=== PATIENT | male | born 1950 | race Caucasian/White ===

== ENCOUNTER 2020-03-01 16:17 | Emergency (ER) | payer MEDICARE ==
[2020-03-01] MEDS ORDERED: Ibuprofen 200 MG TAB ONE (17:06)
--- NOTE | 2020-03-01 20:55 | RAD ---
RIGHT HIP TWO VIEWS: 03/01/20 No fracture or dislocation was seen. The joint space is normal in width. The adjacent pubic ring esmer ears intact. There was perhaps a minimal amount of sclerosis in the femoral neck, but given a three d ay old injury, I doubt that this is a sign of a subtle fracture. The right SI joint appears normal. IMPRESSION: No acute findings. POS: HOME
== END 2020-03-01 17:33 | disposition home or self-care (01) ==
LOC: BURERS 16:17
DX: S70.01XA Contusion of right hip, initial encounter (principal); I10 Essential (primary) hypertension; I25.10 Atherosclerotic heart disease of native coronary artery without angina pectoris; Z95.1 Presence of aortocoronary bypass graft; F17.210 Nicotine dependence, cigarettes, uncomplicated; W17.89XA Other fall from one level to another, initial encounter
CPT/HCPCS: 99406

== ENCOUNTER 2021-02-01 08:58 | Emergency (ER) | payer MEDICARE | END 2021-02-01 10:25 | disposition home or self-care (01) | LOC: BURERS 08:58 | DX: G62.9 Polyneuropathy, unspecified (principal); I10 Essential (primary) hypertension; F17.210 Nicotine dependence, cigarettes, uncomplicated; I25.10 Atherosclerotic heart disease of native coronary artery without angina pectoris; Z86.73 Personal history of transient ischemic attack (TIA), and cerebral infarction without residual deficits | CPT/HCPCS: 99283 ==

== ENCOUNTER 2021-08-15 15:18 | Emergency (ER) | payer MEDICARE ==
[2021-08-15 16:10] LABS: #Basophils 0.1 thou/uL (0.0-0.2); #Eosinphils 0.3 thou/uL (0.0-0.7); #Lymphocytes 1.1 thou/uL (1.20-3.40); #Monocytes 0.7 thou/uL (0.11-0.59); #Neutrophils 5.7 thou/uL (1.40-6.50); %Basophils 0.7 % (0.0-1.0); %Eosinophils 3.3 % (0.0-10.0); %Lymphocytes 13.6 % (21.0-51.0); %Monocytes 9.4 % (0.0-10.0); %Neutrophils 72.9 % (42.0-75.0); Hemoglobin 15.2 g/dL (14.0-18.0); Mean Corpuscular HGB CONC 32.8 g/dL (32.0-36.0); Mean Corpuscular Volume 88.4 fL (78.0-98.0); Mean Platelet Volume 8.2 fL (7.4-10.4); Platelet Count 186 thou/uL (130-400); RBC Distribution Width 13.8 % (11.5-14.5); Red Blood Cell (RBC) Count 5.24 mill/uL (4.70-6.10); White Blood Cell (WBC) Count 7.8 thou/uL (4.8-10.8)
[2021-08-15 16:26] LABS: ALT (SGPT) 15 U/L (8-55); AST (SGOT) 15 U/L (5-34); Albumin 3.7 g/dL (3.4-4.8); Alkaline Phosphatase 74 U/L (40-110); Anion Gap 14 mmol/L (10-20); BUN (Urea Nitrogen) 30 mg/dL (8.4-25.7); Bilirubin, Total 0.7 mg/dL (0.2-1.2); Calc. Creatinine Clearance 0 mL/min (70-130); Calcium 8.8 mg/dL (7.8-10.44); Carbon Dioxide 22 mmol/L (23-31); Chloride 110 mmol/L (98-107); Globulin 2.9 g/dL (2.4-3.5); Glucose 94 mg/dL (83-110); Potassium 4.1 mmol/L (3.5-5.1); Protein, Total 6.6 g/dL (5.8-8.1); Sodium 142 mmol/L (136-145)
[2021-08-15] MEDS ORDERED: cloNIDine 0.1 MG TAB ONE (16:59)
[2021-08-15 17:10] LABS: Bilirubin Negative (Negative); Blood, Urine Negative (Negative); Clarity Clear (Clear); Glucose, Urine (Dipstick) 100 mg/dL (Negative); Ketone, Urine Negative (Negative); Leukocyte Negative (Negative); Nitrite Negative (Negative); Protein, Urine (Dipstick) Negative (Neg-Trace); Urobilinogen 0.2 mg/dL (Less than 2); pH, Urine 5.5 (5.0-9.0)
== END 2021-08-15 19:21 | disposition home or self-care (01) ==
LOC: BURERS 15:18
DX: I10 Essential (primary) hypertension (principal); I25.10 Atherosclerotic heart disease of native coronary artery without angina pectoris; F17.210 Nicotine dependence, cigarettes, uncomplicated; Z59.00 Homelessness unspecified; Z79.82 Long term (current) use of aspirin; Z79.899 Other long term (current) drug therapy; Z86.73 Personal history of transient ischemic attack (TIA), and cerebral infarction without residual deficits
CPT/HCPCS: 36415; 71045; 80053; 81003; 83880; 84484; 85025; 93005

== ENCOUNTER 2021-10-31 09:10 | Emergency (ER) | payer MEDICARE ==
[2021-10-31] MEDS ORDERED: Ibuprofen 200 MG TAB ONE (09:52)
== END 2021-10-31 10:43 | disposition home or self-care (01) ==
LOC: BURERS 09:10
DX: M72.2 Plantar fascial fibromatosis (principal); I10 Essential (primary) hypertension; F17.210 Nicotine dependence, cigarettes, uncomplicated; I25.10 Atherosclerotic heart disease of native coronary artery without angina pectoris; Z79.899 Other long term (current) drug therapy; Z79.82 Long term (current) use of aspirin; Z71.6 Tobacco abuse counseling

== ENCOUNTER 2021-11-02 11:58 | Emergency (ER) | payer MEDICARE ==
[2021-11-02] MEDS ORDERED: Iopamidol 370 76% 100 ML VIAL FS ONE (11:59)
[2021-11-02 12:17] LABS: #Monocytes 0.4 thou/uL (0.11-0.59); #Neutrophils 9.8 thou/uL (1.40-6.50); %Basophils 0.4 % (0.0-1.0); %Eosinophils 0.1 % (0.0-10.0); %Lymphocytes 9.1 % (21.0-51.0); %Monocytes 3.9 % (0.0-10.0); %Neutrophils 86.6 % (42.0-75.0); Mean Corpuscular HGB CONC 33.4 g/dL (32.0-36.0); Mean Corpuscular Volume 86.6 fL (78.0-98.0); Mean Platelet Volume 8.1 fL (7.4-10.4); Platelet Count 283 thou/uL (130-400); RBC Distribution Width 13.6 % (11.5-14.5); Red Blood Cell (RBC) Count 5.86 mill/uL (4.70-6.10); White Blood Cell (WBC) Count 11.3 thou/uL (4.8-10.8)
[2021-11-02 12:23] LABS: Prothrombin Time 13.5 sec (12.0-14.7)
[2021-11-02 12:24] LABS: PTT 34.6 sec (22.9-36.1)
[2021-11-02] MEDS ORDERED: Aspirin 300 MG Suppository ONE ×2 (12:24→12:37)
[2021-11-02 12:31] LABS: ALT (SGPT) 13 U/L (8-55); AST (SGOT) 15 U/L (5-34); Acetaminophen Less than 10.0 mcg/mL (10.0-30.0); Albumin 4.3 g/dL (3.4-4.8); Alcohol Less than 10 mg/dL (Less than 10); Alkaline Phosphatase 85 U/L (40-110); Anion Gap 18 mmol/L (10-20); BUN (Urea Nitrogen) 28 mg/dL (8.4-25.7); Bilirubin, Total 0.8 mg/dL (0.2-1.2); Calc. Creatinine Clearance 0 mL/min (70-130); Calcium 9.6 mg/dL (7.8-10.44); Carbon Dioxide 23 mmol/L (23-31); Chloride 107 mmol/L (98-107); Estimated GFR 47; Globulin 3.3 g/dL (2.4-3.5); Glucose 135 mg/dL (83-110); Potassium 4.6 mmol/L (3.5-5.1); Protein, Total 7.6 g/dL (5.8-8.1); Salicylate Less than 8.0 mg/dL (15.0-30.0); Sodium 143 mmol/L (136-145)
[2021-11-02] MEDS ORDERED: Aspirin Chewable 81 MG TAB ONE (12:34)
[2021-11-02] MEDS ORDERED: Phenylephrine 10 MG/ML VIAL ONE (13:25)
[2021-11-02] MEDS ORDERED: fentaNYL Citrate/PF 100 MCG/2 ML SYRINGE ONE (13:25)
[2021-11-02] MEDS ORDERED: Heparin 10,000 UNITS/ 10 ML VIAL ONE (13:28)
[2021-11-02] MEDS ORDERED: Lidocaine 1% (PF) 30 ML VIAL ONE (13:28)
== END 2021-11-02 13:30 | disposition short-term general hospital (02) ==
LOC: BURERS 11:58
DX: I63.511 Cerebral infarction due to unspecified occlusion or stenosis of right middle cerebral artery (principal)
CPT/HCPCS: 0042T; 70450; 70496; 70498; 71045; 80053; 80307; 82962; 83880; 84484; 85025; 85610; 85730; 93005; 94760; 99285; 36416; J1644; J2001; J2370; Q9967

== ENCOUNTER 2021-11-10 13:55 | Inpatient (IN) | payer MEDICARE ==
[2021-11-10 15:03] VITALS: BMI 26.6
[2021-11-10] MEDS ORDERED: Acetaminophen 325 MG TAB PO PRN (22:11)
[2021-11-11] MEDS: Nicotine 14 MG PATCH TOP SCH (08:11)
[2021-11-11] MEDS: Hydrochlorothiazide 25 MG TAB PO SCH (08:12)
[2021-11-11] MEDS: Aspirin Chewable 81 MG TAB PO SCH (08:13)
[2021-11-11] MEDS: Carvedilol 6.25 MG TAB PO SCH ×2 (08:14→20:33)
[2021-11-11] MEDS: Losartan Potassium 50 MG TAB PO SCH (08:15)
[2021-11-11] MEDS: NIFEdipine XL 30 MG TAB PO SCH (20:33)
[2021-11-11] MEDS: Atorvastatin Calcium 40 MG TAB PO SCH (20:33)
[2021-11-12] MEDS: Nicotine 14 MG PATCH TOP SCH (08:45)
[2021-11-12] MEDS: Losartan Potassium 50 MG TAB PO SCH (08:45)
[2021-11-12] MEDS: Carvedilol 6.25 MG TAB PO SCH ×2 (08:46→20:23)
[2021-11-12] MEDS: Aspirin Chewable 81 MG TAB PO SCH (08:46)
[2021-11-12] MEDS: Hydrochlorothiazide 25 MG TAB PO SCH (08:47)
[2021-11-12] MEDS: NIFEdipine XL 30 MG TAB PO SCH (20:23)
[2021-11-12] MEDS: Atorvastatin Calcium 40 MG TAB PO SCH (20:23)
[2021-11-13] MEDS: Aspirin Chewable 81 MG TAB PO SCH (08:13)
[2021-11-13] MEDS: Nicotine 14 MG PATCH TOP SCH (08:13)
[2021-11-13] MEDS: Losartan Potassium 50 MG TAB PO SCH (08:15)
[2021-11-13] MEDS: Carvedilol 6.25 MG TAB PO SCH ×2 (08:16→20:38)
[2021-11-13] MEDS: Hydrochlorothiazide 25 MG TAB PO SCH (08:18)
[2021-11-13] MEDS: Clopidogrel Bisulfate 75 MG TAB PO SCH (08:33)
[2021-11-13] MEDS: Atorvastatin Calcium 40 MG TAB PO SCH (20:38)
[2021-11-13] MEDS: NIFEdipine XL 30 MG TAB PO SCH (20:38)
[2021-11-14] MEDS ORDERED: Acetaminophen 650 MG Suppository PR PRN (03:17)
[2021-11-14] MEDS ORDERED: Acetaminophen 325 MG TAB PO PRN (03:17)
[2021-11-14] MEDS ORDERED: Ondansetron ODT 4 MG TAB SL PRN (03:18)
[2021-11-14] MEDS ORDERED: HYDROcodone/Acetaminophen 5/325 mg Tablet PO PRN ×2 (03:18)
[2021-11-14] MEDS ORDERED: Calcium Carbonate 500 MG ChewTAB PO PRN (03:19)
[2021-11-14] MEDS ORDERED: Ondansetron PF 4 MG/2 ML Vial IVP PRN (03:19)
[2021-11-14] MEDS ORDERED: Senokot S 8.6-50 MG TAB PO PRN (03:21)
[2021-11-14] MEDS ORDERED: Bisacodyl 5 MG TAB PO PRN (03:21)
[2021-11-14] MEDS ORDERED: Bisacodyl 10 MG SUPP PR PRN (03:21)
[2021-11-14] MEDS ORDERED: Loperamide HCl 2 MG CAP PO PRN ×2 (03:22→03:23)
[2021-11-14] MEDS ORDERED: Zolpidem Tartrate 5 MG TAB PO PRN (03:23)
[2021-11-14] MEDS: Nicotine 14 MG PATCH TOP SCH (09:11)
[2021-11-14] MEDS: Carvedilol 6.25 MG TAB PO SCH ×2 (09:11→20:56)
[2021-11-14] MEDS: Aspirin Chewable 81 MG TAB PO SCH (09:12)
[2021-11-14] MEDS: Losartan Potassium 50 MG TAB PO SCH (09:12)
[2021-11-14] MEDS: Clopidogrel Bisulfate 75 MG TAB PO SCH (09:12)
[2021-11-14] MEDS: Hydrochlorothiazide 25 MG TAB PO SCH (09:12)
[2021-11-14] MEDS: NIFEdipine XL 30 MG TAB PO SCH (20:55)
[2021-11-14] MEDS: Atorvastatin Calcium 40 MG TAB PO SCH (20:56)
[2021-11-15] MEDS: Clopidogrel Bisulfate 75 MG TAB PO SCH (08:46)
[2021-11-15] MEDS: Aspirin Chewable 81 MG TAB PO SCH (08:46)
[2021-11-15] MEDS: Carvedilol 6.25 MG TAB PO SCH ×2 (08:46→20:52)
[2021-11-15] MEDS: Nicotine 14 MG PATCH TOP SCH (08:46)
[2021-11-15] MEDS: Hydrochlorothiazide 25 MG TAB PO SCH (08:46)
[2021-11-15] MEDS: Losartan Potassium 50 MG TAB PO SCH (08:47)
[2021-11-15] MEDS: Atorvastatin Calcium 40 MG TAB PO SCH (20:53)
[2021-11-15] MEDS: NIFEdipine XL 30 MG TAB PO SCH (20:53)
[2021-11-16] MEDS: Clopidogrel Bisulfate 75 MG TAB PO SCH (09:46)
[2021-11-16] MEDS: Hydrochlorothiazide 25 MG TAB PO SCH ×2 (09:46→09:47)
[2021-11-16] MEDS: Nicotine 14 MG PATCH TOP SCH (09:46)
[2021-11-16] MEDS: Carvedilol 6.25 MG TAB PO SCH ×2 (09:47→20:41)
[2021-11-16] MEDS: Losartan Potassium 50 MG TAB PO SCH (09:47)
[2021-11-16] MEDS: Aspirin Chewable 81 MG TAB PO SCH (09:49)
[2021-11-16] MEDS: NIFEdipine XL 30 MG TAB PO SCH (20:41)
[2021-11-16] MEDS: Atorvastatin Calcium 40 MG TAB PO SCH (20:41)
[2021-11-17] MEDS: Clopidogrel Bisulfate 75 MG TAB PO SCH (09:30)
[2021-11-17] MEDS: Carvedilol 6.25 MG TAB PO SCH ×2 (09:30→21:31)
[2021-11-17] MEDS: Losartan Potassium 50 MG TAB PO SCH (09:31)
[2021-11-17] MEDS: Aspirin Chewable 81 MG TAB PO SCH (09:31)
[2021-11-17] MEDS: Nicotine 14 MG PATCH TOP SCH (09:31)
[2021-11-17] MEDS: NIFEdipine XL 30 MG TAB PO SCH (21:30)
[2021-11-17] MEDS: Atorvastatin Calcium 40 MG TAB PO SCH (21:30)
[2021-11-18] MEDS: Aspirin Chewable 81 MG TAB PO SCH (09:57)
[2021-11-18] MEDS: Carvedilol 6.25 MG TAB PO SCH ×2 (09:57→21:48)
[2021-11-18] MEDS: Clopidogrel Bisulfate 75 MG TAB PO SCH (09:57)
[2021-11-18] MEDS: Hydrochlorothiazide 25 MG TAB PO SCH (09:58)
[2021-11-18] MEDS: Nicotine 14 MG PATCH TOP SCH (09:58)
[2021-11-18] MEDS: Losartan Potassium 50 MG TAB PO SCH (09:58)
[2021-11-18] MEDS: Atorvastatin Calcium 40 MG TAB PO SCH (21:48)
[2021-11-18] MEDS: NIFEdipine XL 30 MG TAB PO SCH (21:48)
[2021-11-19] MEDS: Losartan Potassium 50 MG TAB PO SCH (10:23)
[2021-11-19] MEDS: Clopidogrel Bisulfate 75 MG TAB PO SCH (10:23)
[2021-11-19] MEDS: Hydrochlorothiazide 25 MG TAB PO SCH (10:24)
[2021-11-19] MEDS: Aspirin Chewable 81 MG TAB PO SCH (10:24)
[2021-11-19] MEDS: Carvedilol 6.25 MG TAB PO SCH ×2 (10:24→22:01)
[2021-11-19] MEDS: Nicotine 14 MG PATCH TOP SCH (10:25)
[2021-11-19] MEDS: Atorvastatin Calcium 40 MG TAB PO SCH (22:01)
[2021-11-19] MEDS: NIFEdipine XL 30 MG TAB PO SCH (22:01)
[2021-11-20] MEDS: Carvedilol 6.25 MG TAB PO SCH ×2 (08:53→20:33)
[2021-11-20] MEDS: Losartan Potassium 50 MG TAB PO SCH (08:53)
[2021-11-20] MEDS: Hydrochlorothiazide 25 MG TAB PO SCH (08:53)
[2021-11-20] MEDS: Clopidogrel Bisulfate 75 MG TAB PO SCH (08:53)
[2021-11-20] MEDS: Aspirin Chewable 81 MG TAB PO SCH (08:54)
[2021-11-20] MEDS: Nicotine 14 MG PATCH TOP SCH (08:55)
[2021-11-20] MEDS: Atorvastatin Calcium 40 MG TAB PO SCH (20:33)
[2021-11-20] MEDS: NIFEdipine XL 30 MG TAB PO SCH (20:34)
[2021-11-21] MEDS: Hydrochlorothiazide 25 MG TAB PO SCH (09:25)
[2021-11-21] MEDS: Aspirin Chewable 81 MG TAB PO SCH (09:25)
[2021-11-21] MEDS: Clopidogrel Bisulfate 75 MG TAB PO SCH (09:25)
[2021-11-21] MEDS: Losartan Potassium 50 MG TAB PO SCH (09:25)
[2021-11-21] MEDS: Carvedilol 6.25 MG TAB PO SCH (09:25)
[2021-11-21] MEDS: Nicotine 14 MG PATCH TOP SCH (09:26)
[2021-11-21 18:15] VITALS: BP 136/75; TEMP 97.4
== END 2021-11-21 19:30 | disposition home or self-care (01) | DRG 57 ==
LOC: BURMED 13:55
PROVIDERS: ADMIT Family Medicine; ATTEND Family Medicine
DX: I69.354 Hemiplegia and hemiparesis following cerebral infarction affecting left non-dominant side (principal); I69.322 Dysarthria following cerebral infarction; Z20.822 Contact with and (suspected) exposure to COVID-19; I25.10 Atherosclerotic heart disease of native coronary artery without angina pectoris; N40.0 Benign prostatic hyperplasia without lower urinary tract symptoms; I10 Essential (primary) hypertension; F17.210 Nicotine dependence, cigarettes, uncomplicated; Z66 Do not resuscitate; Z71.6 Tobacco abuse counseling; Z95.1 Presence of aortocoronary bypass graft; Z95.0 Presence of cardiac pacemaker; Z79.899 Other long term (current) drug therapy; Z79.82 Long term (current) use of aspirin
CPT/HCPCS: U0003; U0005

== ENCOUNTER 2022-04-15 09:31 | Emergency (ER) | payer MEDICARE ==
[2022-04-15 10:08] LABS: #Basophils 0.1 thou/uL (0.0-0.2); #Eosinphils 0.2 thou/uL (0.0-0.7); #Lymphocytes 1.2 thou/uL (1.20-3.40); #Monocytes 0.5 thou/uL (0.11-0.59); #Neutrophils 4.8 thou/uL (1.40-6.50); %Eosinophils 3.1 % (0.0-10.0); %Lymphocytes 17.1 % (21.0-51.0); %Neutrophils 70.8 % (42.0-75.0); Hemoglobin 15.6 g/dL (14.0-18.0); Mean Corpuscular HGB CONC 33.5 g/dL (32.0-36.0); Mean Corpuscular Hemoglobin 29.4 pg (27.0-31.0); Mean Corpuscular Volume 87.8 fl (78.0-98.0); Mean Platelet Volume 8.3 fL (7.4-10.4); Platelet Count 224 10x3/uL (130-400); RBC Distribution Width 13.1 % (11.5-14.5); Red Blood Cell (RBC) Count 5.33 mill/uL (4.70-6.10); White Blood Cell (WBC) Count 6.7 10x3/uL (4.8-10.8)
[2022-04-15] MEDS ORDERED: Ketorolac Tromethamine 30 MG/ML VIAL ONE (10:08)
[2022-04-15] MEDS ORDERED: NIFEdipine XL 30 MG TAB ONE (10:08)
[2022-04-15] MEDS ORDERED: Carvedilol 6.25 MG TAB ONE (10:08)
[2022-04-15] MEDS ORDERED: Acetaminophen 500 MG TAB ONE (10:08)
[2022-04-15] MEDS ORDERED: Hydrochlorothiazide 25 MG TAB ONE (10:08)
[2022-04-15 10:23] LABS: ALT (SGPT) 11 U/L (8-55); AST (SGOT) 13 U/L (5-34); Albumin 3.8 g/dL (3.4-4.8); Alkaline Phosphatase 65 U/L (40-110); Anion Gap 10 mmol/L (10-20); BUN (Urea Nitrogen) 21 mg/dL (8.4-25.7); Bilirubin, Total 0.6 mg/dL (0.2-1.2); Calc. Creatinine Clearance 0 mL/min (70-130); Calcium 9.1 mg/dL (7.8-10.44); Carbon Dioxide 29 mmol/L (23-31); Chloride 107 mmol/L (98-107); Estimated GFR 51; Globulin 2.6 g/dL (2.4-3.5); Glucose 93 mg/dL (83-110); Potassium 4.6 mmol/L (3.5-5.1); Protein, Total 6.4 g/dL (5.8-8.1); Sodium 141 mmol/L (136-145)
== END 2022-04-15 13:41 | disposition home or self-care (01) ==
LOC: BURERS 09:31
DX: M51.36 Other intervertebral disc degeneration, lumbar region (principal); I10 Essential (primary) hypertension; Z87.891 Personal history of nicotine dependence
CPT/HCPCS: 72131; 80053; 85025; 93005; 96374; J1885

== ENCOUNTER 2022-04-20 11:52 | Emergency (ER) | payer MEDICARE ==
[2022-04-20 12:21] LABS: #Basophils 0.1 thou/uL (0.0-0.2); #Eosinphils 0.3 thou/uL (0.0-0.7); #Lymphocytes 1.3 thou/uL (1.20-3.40); #Monocytes 0.6 thou/uL (0.11-0.59); #Neutrophils 5.6 thou/uL (1.40-6.50); %Basophils 0.9 % (0.0-1.0); %Eosinophils 3.3 % (0.0-10.0); %Lymphocytes 16.7 % (21.0-51.0); Hemoglobin 16.8 g/dL (14.0-18.0); Mean Corpuscular HGB CONC 32.3 g/dL (32.0-36.0); Mean Corpuscular Hemoglobin 28.7 pg (27.0-31.0); Mean Corpuscular Volume 88.8 fl (78.0-98.0); Mean Platelet Volume 9.8 fL (7.4-10.4); Platelet Count 256 10x3/uL (130-400); RBC Distribution Width 13.9 % (11.5-14.5); Red Blood Cell (RBC) Count 5.85 mill/uL (4.70-6.10); White Blood Cell (WBC) Count 7.9 10x3/uL (4.8-10.8)
[2022-04-20 12:35] LABS: ALT (SGPT) 20 U/L (8-55); AST (SGOT) 17 U/L (5-34); Albumin 4.2 g/dL (3.4-4.8); Alkaline Phosphatase 73 U/L (40-110); Anion Gap 18 mmol/L (10-20); BUN (Urea Nitrogen) 30 mg/dL (8.4-25.7); Bilirubin, Total 0.6 mg/dL (0.2-1.2); Calc. Creatinine Clearance 0 mL/min (70-130); Calcium 9.7 mg/dL (7.8-10.44); Carbon Dioxide 25 mmol/L (23-31); Chloride 105 mmol/L (98-107); Estimated GFR 36; Globulin 2.9 g/dL (2.4-3.5); Glucose 100 mg/dL (83-110); Lipase 42 U/L (8-78); Potassium 4.5 mmol/L (3.5-5.1); Protein, Total 7.1 g/dL (5.8-8.1); Sodium 143 mmol/L (136-145)
[2022-04-20 12:36] LABS: CK (CPK) 37 U/L (30-200); CRP (Inflammatory) Less than 0.50 mg/dL (= or < 0.5)
[2022-04-20 15:37] LABS: Bilirubin Negative (Negative); Blood, Urine Negative (Negative); Clarity Clear (Clear); Glucose, Urine (Dipstick) Negative (Negative); Ketone, Urine Negative (Negative); Leukocyte Negative (Negative); Nitrite Negative (Negative); Protein, Urine (Dipstick) Negative (Neg-Trace); Urobilinogen 0.2 mg/dL (Less than 2); pH, Urine 5.5 (5.0-9.0)
[2022-04-20 15:38] LABS: Specific Gravity, Urine 1.018 (1.002-1.036)
[2022-04-20 15:50] LABS: Amphetamine Not Detected (NotDetected); Barbiturates Screen Not Detected (NotDetected); Benzodiazepine Screen Not Detected (NotDetected); Cocaine Metabolite Screen Not Detected (NotDetected); Medtox Control Line Valid? VALID (VALID); Methadone Not Detected (NotDetected); Methamphetamine Not Detected (NotDetected); Opiate Screen Not Detected (NotDetected); Oxycodone Screen Not Detected (NotDetected); Phencyclidine (PCP) Not Detected (NotDetected); THC/Cannabinoid Screen Not Detected (NotDetected); Tricyclic Screen Not Detected (NotDetected)
== END 2022-04-20 21:20 | disposition short-term general hospital (02) ==
LOC: BURERS 11:52
DX: J44.9 Chronic obstructive pulmonary disease, unspecified (principal); I10 Essential (primary) hypertension; N28.9 Disorder of kidney and ureter, unspecified; M62.81 Muscle weakness (generalized); E78.5 Hyperlipidemia, unspecified; I25.10 Atherosclerotic heart disease of native coronary artery without angina pectoris; F17.210 Nicotine dependence, cigarettes, uncomplicated; Z79.899 Other long term (current) drug therapy
CPT/HCPCS: 70450; 71045; 80053; 80306; 81003; 82550; 83690; 83735; 84443; 84484; 85025; 85379; 86140; 93005

== ENCOUNTER 2022-05-27 12:03 | Emergency (ER) | payer MEDICARE ==
[2022-05-27 12:39] LABS: #Eosinphils 0.2 thou/uL (0.0-0.7); #Lymphocytes 1.2 thou/uL (1.20-3.40); #Monocytes 0.4 thou/uL (0.11-0.59); #Neutrophils 5.1 thou/uL (1.40-6.50); %Basophils 0.6 % (0.0-1.0); %Eosinophils 2.2 % (0.0-10.0); %Lymphocytes 17.1 % (21.0-51.0); %Monocytes 5.1 % (0.0-10.0); Hemoglobin 14.6 g/dL (14.0-18.0); Mean Corpuscular HGB CONC 33.4 g/dL (32.0-36.0); Mean Corpuscular Hemoglobin 29.4 pg (27.0-31.0); Mean Corpuscular Volume 88.2 fl (78.0-98.0); Mean Platelet Volume 7.9 fL (7.4-10.4); Platelet Count 183 10x3/uL (130-400); RBC Distribution Width 13.6 % (11.5-14.5); Red Blood Cell (RBC) Count 4.96 mill/uL (4.70-6.10); White Blood Cell (WBC) Count 6.8 10x3/uL (4.8-10.8)
[2022-05-27 13:01] LABS: ALT (SGPT) 13 U/L (8-55); AST (SGOT) 15 U/L (5-34); Albumin 3.8 g/dL (3.4-4.8); Alkaline Phosphatase 58 U/L (40-110); Anion Gap 13 mmol/L (10-20); BUN (Urea Nitrogen) 21 mg/dL (8.4-25.7); Bilirubin, Total 0.7 mg/dL (0.2-1.2); Calc. Creatinine Clearance 0 mL/min (70-130); Calcium 9.1 mg/dL (7.8-10.44); Carbon Dioxide 28 mmol/L (23-31); Chloride 106 mmol/L (98-107); Estimated GFR 54; Globulin 2.9 g/dL (2.4-3.5); Glucose 118 mg/dL (83-110); Potassium 4.5 mmol/L (3.5-5.1); Protein, Total 6.7 g/dL (5.8-8.1); Sodium 142 mmol/L (136-145)
== END 2022-05-27 14:42 ==
LOC: BURERS 12:03
DX: I69.354 Hemiplegia and hemiparesis following cerebral infarction affecting left non-dominant side (principal); I10 Essential (primary) hypertension; E78.5 Hyperlipidemia, unspecified; F17.200 Nicotine dependence, unspecified, uncomplicated
CPT/HCPCS: 71045; 80053; 84484; 85025; 93005